=== PATIENT | male | born 1945 | race Caucasian/White ===

== ENCOUNTER 2016-10-25 16:47 | Emergency (ER) | payer OTHER, MEDICARE ==
[2016-10-25 17:07] VITALS: BP 131/91; PULSE 92; TEMP 99.6; BMI 29.9
[2016-10-25 18:22] LABS: BASOPHIL 0.6 % (0-2.0); EOSINOPHIL 3.9 % (0-4.5); MCH 30.2 pg (25.7-33.7); MCHC 33.3 g/dl (32.0-35.9); MEAN CELL VOLUME 90.7 fl (80-96); MEAN PLT VOLUME 7.6 fl (7.5-11.1); NEUTROPHILS 65.4 % (42.8-82.8); PLATELET COUNT 205 K/MM3 (134-434)
[2016-10-25 18:31] LABS: ACTIVATED PTT 47.4 SECONDS (24.0-38.9)
[2016-10-25 18:35] LABS: PROTHROMBIN TIME (PATIENT) 53.2 SEC (10.2-13.0)
[2016-10-25 18:37] LABS: INR 4.9 (0.82-1.09)
--- NOTE | 2016-10-25 18:51 | PDOC ---
History of Present Illness - General History Source: Patient Exam Limitations: No Limitations <Harish Brojas - Last Filed: 10/25/16 18:51> - General History Source: Patient Exam Limitations: No Limitations - History of Present Illness Initial Comments: The patient is a 71-year-old male with history of pulmonary embolism (3 years ago on lifelong Coumadin) who presents to the emergency department with bleeding from the roof of his mouth. The patient was biting on a sandwich when one of the ortiz slices had sliced the roof of his mouth 3 hours prior to his arrival. The patient had persistent bleeding and could not control it. He reports adherence to his Coumadin and presents to the ED for further evaluation. Denies lightheadedness, shortness of breath, chest pain. <Domingo Kraus - Last Filed: 10/25/16 18:58> - General Chief Complaint: Laceration Stated Complaint: BLEEDING FROM MOUTH Time Seen by Provider: 10/25/16 16:57 Past History - Past Medical History HTN: Yes Hypercholesterolemia: Yes Other medical history: KIDNEY DISEASE ELEVATED CREATININE PULMONARY EMBOLISM TORN ROTATOR CUFF - Surgical History Appendectomy: Yes - Psycho/Social/Smoking Cessation Hx Anxiety: No Suicidal Ideation: No Smoking History: Never smoked Information on smoking cessation initiated: No Hx Alcohol Use: Yes (SOCIAL) Drug/Substance Use Hx: No Substance Use Type: Alcohol <Harish Borjas - Last Filed: 10/25/16 18:51> <Domingo Kraus - Last Filed: 10/25/16 18:58> - Past Medical History Allergies/Adverse Reactions: Allergies Allergy/AdvReac Type Severity Reaction Status Date / Time No Known Allergies Allergy Unverified 10/25/16 16:50 Home Medications: Ambulatory Orders Atorvastatin Ca [Lipitor] 40 mg PO HS 10/25/16 Losartan Potassium 50 mg PO DAILY 10/25/16 Oxycodone HCl/Acetaminophen [Percocet 10-325 mg Tablet] 1 each PO PRN PRN Warfarin Sodium [Coumadin] 7 mg PO DAILY 10/25/16 Review of Systems - Review of Systems Able to Perform ROS?: Yes Comments:: GENERAL/CONSTITUTIONAL: No fever or chills. No weakness. HEAD, EYES, EARS, NOSE AND THROAT: (+) Mouth abrasion. No change in vision. No ear pain or discharge. No sore throat. CARDIOVASCULAR: No chest pain or shortness of breath. RESPIRATORY: No cough, wheezing, or hemoptysis. GASTROINTESTINAL: No nausea, vomiting, diarrhea or constipation. GENITOURINARY: No dysuria, frequency, or change in urination. MUSCULOSKELETAL: No joint or muscle swelling or pain. No neck or back pain. SKIN: No rash NEUROLOGIC: No headache, vertigo, loss of consciousness, or change in strength/ sensation. ENDOCRINE: No increased thirst. No abnormal weight change. HEMATOLOGIC/LYMPHATIC: No anemia, easy bleeding, or history of blood clots. ALLERGIC/IMMUNOLOGIC: No hives or skin allergy. <Domingo Kraus - Last Filed: 10/25/16 18:58> *Physical Exam - Vital Signs Last Vital Signs Temp Pulse Resp BP Pulse Ox 99.6 F 92 H 16 131/91 97 10/25/16 16:49 10/25/16 16:49 10/25/16 16:49 10/25/16 16:49 10/25/16 16:49 <Harish Borjas - Last Filed: 10/25/16 18:51> - Vital Signs Last Vital Signs Temp Pulse Resp BP Pulse Ox 99.6 F 92 H 16 131/91 97 10/25/16 16:49 10/25/16 16:49 10/25/16 16:49 10/25/16 16:49 10/25/16 16:49 - Physical Exam Comments: GENERAL: Awake, alert, and fully oriented, in no acute distress HEAD: No signs of trauma EYES: PERRLA, EOMI, sclera anicteric, conjunctiva clear ENT: (+) 2 x 2 cm abrasions to the roof of the mouth with constant bleeding. Auricles normal inspection, hearing grossly normal, nares patent, oropharynx clear without exudates. Moist mucosa NECK: Normal ROM, supple, no lymphadenopathy, JVD, or masses LUNGS: Breath sounds equal, clear to auscultation bilaterally. No wheezes, and no crackles HEART: Regular rate and rhythm, normal S1 and S2, no murmurs, rubs or gallops ABDOMEN: Soft, nontender, normoactive bowel sounds. No guarding, no rebound. No masses EXTREMITIES: Normal range of motion, no edema. No clubbing or cyanosis. No cords, erythema, or tenderness NEUROLOGICAL: Cranial nerves II through XII grossly intact. Normal speech, normal gait SKIN: Warm, Dry, normal turgor, no rashes or lesions noted. <Domingo Kraus - Last Filed: 10/25/16 18:58> ED Treatment Course - LABORATORY CBC & Chemistry Diagram: 10/25/16 18:09 - ADDITIONAL ORDERS Additional order review: Laboratory Results 10/25/16 18:09 INR 4.90 H* PTT (Actin FS) 47.4 H 10/25/16 18:09 RBC 3.60 L MCV 90.7 MCHC 33.3 RDW 14.0 MPV 7.6 Neutrophils % 65.4 Lymphocytes % 24.4 Monocytes % 5.7 Eosinophils % 3.9 Basophils % 0.6 <Harish Borjas - Last Filed: 10/25/16 18:51> - LABORATORY CBC & Chemistry Diagram: 10/25/16 18:09 - ADDITIONAL ORDERS Additional order review: Laboratory Results 10/25/16 18:09 INR 4.90 H* PTT (Actin FS) 47.4 H 10/25/16 18:09 RBC 3.60 L MCV 90.7 MCHC 33.3 RDW 14.0 MPV 7.6 Neutrophils % 65.4 Lymphocytes % 24.4 Monocytes % 5.7 Eosinophils % 3.9 Basophils % 0.6 <Domingo Kraus - Last Filed: 10/25/16 18:58> Medical Decision Making - Medical Decision Making 10/25/16 18:51 A portion of this note was documented by scribe services under my direction. I have reviewed the details of the note, within reason, and agree with the documentation with the following case summary and management plan written by me. Patient treated in the ED. Nursing notes are reviewed and incorporated into the medical decision-making. Vital signs reviewed. Peripheral IV access obtained by the nurse, laboratory studies are drawn and sent, reviewed and interpreted by myself. Vital Signs Temp Pulse Resp BP Pulse Ox 99.6 F 92 H 16 131/91 97 10/25/16 16:49 10/25/16 16:49 10/25/16 16:49 10/25/16 16:49 10/25/16 16:49 71-year-old male with history of pulmonary embolism that resulted 3 years ago on lifelong Coumadin Presents with bleeding from mouth. The patient was biting on a sandwich when one of the ortiz slices had sliced the roof of his mouth. This had occurred 3 hours prior to arrival. Patient had persistent bleeding cannot control it. He reports adherence to his Coumadin. Denies lightheadedness , shortness of breath, chest pain. Had came to the ED for further evaluation. I had attempted to apply pressure with gauze but was unable to successfully stop the bleed. Several times with Surgicel was utilized without success. Initially, the patient had refused IV access but allow us to do butterflies. Patient's CBC demonstrated hemoglobin approximately 10 and INR 4.9. Patient is supratherapeutic. However, I recommended the patient be transferred to a higher level care Hospital like [facility] but the patient refuses. The patient is reason that he lives in [place] and cannot be in [facility]. The patient has capacity and is AAO 3. He has been given the recommendation and the risks and benefits including worsening bleed and fainting and other complications from anemia. Patient states that he would like to go home regardless and that he will go to [facility] if it worsens. I advised patient to hold off on his Coumadin for tonight. Patient will leave AGAINST MEDICAL ADVICE. <Harish Borjas - Last Filed: 10/25/16 18:51> *DC/Admit/Observation/Transfer - Discharge Dispostion Admit: No <Harish Borjas - Last Filed: 10/25/16 18:51> - Attestations Scribe Attestion: Documentation prepared by Domingo Kraus, acting as medical oncologist for Harish Borjas MD. <Domingo Kraus - Last Filed: 10/25/16 18:58> Diagnosis at time of Disposition: Elevated INR, Mouth bleeding - Discharge Dispostion Disposition: AGAINST MEDICAL ADVICE Condition at time of disposition: Stable - Patient Instructions Printed Discharge Instructions: Warfarin Additional Instructions: Your leaving AGAINST MEDICAL ADVICE. We advised that you see an oral surgeon right away for the bleed that in her mouth. Your INR level is elevated at 4.9. Please do not take the Coumadin tonight. If you feel that you're feeling lightheaded or about to faint, please call 911 and return to the emergency department. While at home, please apply pressure to the site to assist with the bleeding.
== END 2016-10-25 19:07 | disposition left against medical advice (07) ==
LOC: FER 16:47
DX: K06.8 Other specified disorders of gingiva and edentulous alveolar ridge (principal); D68.9 Coagulation defect, unspecified; N18.9 Chronic kidney disease, unspecified; E78.00 Pure hypercholesterolemia, unspecified
CPT/HCPCS: 36415; 85025; 85610; 85730; 99281-25